=== PATIENT | female | born 1985 | race Caucasian/White ===

== ENCOUNTER 2025-01-12 09:57 | Emergency (ER) | payer OTHER ==
[~2025-01-12] VITALS: Ht 165.1 cm; Wt 99.8 kg
[~2025-01-12 09:57] MED LIST: AMOCLA875 PO; CIPR500 PO; HYDACE5 PO; HYDPAM50 PO; LAVAP17G PO; LORA1; ONDA4ODT MM; OXYACE5T PO; PARO25 PO; PHENA200 PO; SULTRIDS PO
[2025-01-12 10:54] VITALS: BP 151/107
[2025-01-12] MEDS ORDERED: ESCI20 PO (11:01)
[2025-01-12] MEDS ORDERED: BUSP10 PO (11:01)
[2025-01-12] MEDS ORDERED: Budeprion Xl300 MG PO (11:01)
== END 2025-01-12 11:04 | disposition home or self-care (01) ==
LOC: ER 09:57
DX: Z76.0 Encounter for issue of repeat prescription (principal); Z87.891 Personal history of nicotine dependence; Z79.899 Other long term (current) drug therapy; Z88.0 Allergy status to penicillin; Z91.013 Allergy to seafood; Z91.040 Latex allergy status; Z88.8 Allergy status to other drugs, medicaments and biological substances
CPT/HCPCS: 99282

== ENCOUNTER → 2025-06-21 | Outpatient (CLI) | payer OTHER ==
[~2025-06-21] MED LIST changes: +Adipex-P37.5 M1 PO; +BUSP10 PO; +Budeprion Xl300 MG PO; +ESCI20 PO
[2025-06-22 12:34] LABS: Campylobacter Sp Not Detected (NOT DETECT); E. Coli O157 Not Detected (NOT DETECT); Enteroaggregative E. coli-EAEC Not Detected (NOT DETECT); Enteropathogenic E. coli-EPEC Not Detected (NOT DETECT); Enterotoxigenic E. coli-ETEC Not Detected (NOT DETECT); Salmonella Sp Not Detected (NOT DETECT); Shiga Toxin-prod E. coli-STEC Not Detected (NOT DETECT); Shigella/Enteroin E. coli-EIEC Not Detected (NOT DETECT); Vibrio Sp Not Detected (NOT DETECT)
== END ==
LOC: LAB 17:23 → LAB SHORT 17:23
PROVIDERS: Physician Assistant
DX: R19.5 Other fecal abnormalities (principal)
CPT/HCPCS: 87507

== ENCOUNTER 2025-06-27 09:10 | Day surgery (SDC) | payer OTHER ==
[2025-06-27] VITALS (18 sets, daily range): BP systolic 111–133; BP diastolic 70–95
[~2025-06-27] VITALS: Ht 165.1 cm; Wt 89.5 kg
--- NOTE | 2025-06-27 08:34 | NUR ---
06/27/25 0834 Eldon Rodríguez CONFIRMED AND REVIEWED H&P, MEDCICATIONS, ALLERGIES, MEDICAL HISTORY, RESPIRATORY HISTORY, VITAL SIGNS, 3-LEAD EKG, CONSENTS, AND PHYSICIAN ORDERS. PATIENT CONFIRMS NPO STATUS AND AGREES WITH SCHEDULED PROCEDURE. MONITOR INTACT WITH CONTINUOUS PULSE OXIMETRY, CAPNOGRAPHY, 3-LEAD EKG, INTERMITTENT BP. SUPPLEMENTAL O2 TO BE TITRATED THROUGHOUT PROCEDURE TO MAINTAIN O2 SATURATION ABOVE 90%. PATIENT DETERMINED TO BE ASA APPROPRIATE FOR PROPOFOL SEDATION PRIOR TO START OF PROCEDURE BY DR. SALINAS
[~2025-06-27 09:10] MED LIST changes: -Adipex-P37.5 M1 PO
[2025-06-27] MEDS ORDERED: Adipex-P37.5 M1 PO (09:34)
--- NOTE | 2025-06-27 09:49 | NUR ---
Ambulatory in Day Surgery. History, Chart, Medications and Allergies reviewed before start of procedure. Lungs clear T/O to Auscultation. Patient confirms NPO status and agrees with scheduled surgery. Pre-Op teaching done. Pt verbalizes understanding. Patient States Post-Procedure ride home has been arranged.
== END 2025-06-27 23:00 | disposition home or self-care (01) ==
LOC: ORSCMMR 09:10
PROVIDERS: Family Medicine
PROC: 0DBP8ZX Excision of Rectum, Via Natural or Artificial Opening Endoscopic, Diagnostic (ICD-10-PCS; principal; 2025-06-27 08:30)
DX: K62.5 Hemorrhage of anus and rectum (principal); K62.89 Other specified diseases of anus and rectum; R19.4 Change in bowel habit; Z86.0100 Personal history of colon polyps, unspecified; F41.1 Generalized anxiety disorder; Z86.16 Personal history of COVID-19; F31.81 Bipolar II disorder; Z79.899 Other long term (current) drug therapy; F17.220 Nicotine dependence, chewing tobacco, uncomplicated
CPT/HCPCS: 88305; J2704; J7120